=== PATIENT | female | born 1945 | race Caucasian/White ===

== ENCOUNTER 2022-12-10 13:19 | Inpatient (IN) | payer OTHER, MEDICARE ==
[2022-12-10 14:44] VITALS: BMI 18.2
[2022-12-10] MEDS ORDERED: Morphine 2 MG/ML VIAL SLOW IVP PRN (14:51)
[2022-12-10] MEDS ORDERED: Ipratropium/Albuterol 3 ML NEB NEB PRN (14:51)
[2022-12-10] MEDS ORDERED: Ondansetron PF 4 MG/2 ML Vial IVP PRN (14:51)
[2022-12-10] MEDS ORDERED: Cyclobenzaprine 10 MG TAB PO PRN (14:53)
[2022-12-10] MEDS ORDERED: traMADol HCl 50 MG TAB PO PRN (14:53)
[2022-12-10] MEDS: Sodium Chloride 0.9% 1,000 ML IV SCH (16:12)
[2022-12-10] MEDS: Acetaminophen 500 MG TAB PO SCH (18:29)
[2022-12-10] MEDS: traMADol HCl 50 MG TAB PO SCH (18:30)
[2022-12-10] MEDS: Gabapentin 100 MG CAP PO SCH (21:32)
[2022-12-10] MEDS: Calcium Carbonate 500 MG ChewTAB PO SCH (21:32)
[2022-12-10] MEDS: Famotidine/PF 20 mg/2ml Vial SLOW IVP SCH (21:33)
[2022-12-10] MEDS: Senokot S 8.6-50 MG TAB PO SCH (21:34)
[2022-12-11] MEDS: Sodium Chloride 0.9% 1,000 ML IV SCH ×2 (00:32→08:28)
[2022-12-11] MEDS: traMADol HCl 50 MG TAB PO SCH ×4 (00:33→17:43)
[2022-12-11] MEDS: Acetaminophen 500 MG TAB PO SCH ×4 (00:34→17:45)
[2022-12-11] MEDS ORDERED: Clindamycin/D5W 900 MG in Premix Bag 1 BAG IVPB SCH ×2 (06:00→14:00)
[2022-12-11 07:08] LABS: #Eosinphils 0.1 thou/uL (0.0-0.7); #Monocytes 0.5 thou/uL (0.11-0.59); #Neutrophils 6.3 thou/uL (1.40-6.50); %Basophils 0.4 % (0.0-1.0); %Eosinophils 0.8 % (0.0-10.0); %Lymphocytes 16.7 % (21.0-51.0); %Monocytes 5.9 % (0.0-10.0); %Neutrophils 75.8 % (42.0-75.0); Hematocrit 34.1 % (36.0-47.0); Hemoglobin 10.9 g/dL (12.0-16.0); Mean Corpuscular Hemoglobin 30.5 pg (27.0-31.0); Mean Corpuscular Volume 95.5 fl (78.0-98.0); Mean Platelet Volume 11.7 fL (7.4-10.4); Platelet Count 134 10x3/uL (130-400); RBC Distribution Width 13.6 % (11.5-14.5); Red Blood Cell (RBC) Count 3.57 mill/uL (4.20-5.40); White Blood Cell (WBC) Count 8.3 10x3/uL (4.8-10.8)
[2022-12-11 07:22] LABS: INR-International Normal Ratio 1.1; PTT 31.6 sec (22.9-36.1); Prothrombin Time 14.9 sec (12.0-14.7)
[2022-12-11 07:32] LABS: Anion Gap 10 mmol/L (10-20); BUN (Urea Nitrogen) 11 mg/dL (9.8-20.1); Calc. Creatinine Clearance 61 mL/min (70-130); Calcium 8.1 mg/dL (7.8-10.44); Carbon Dioxide 23 mmol/L (23-31); Chloride 103 mmol/L (98-107); Estimated GFR 91; Glucose 88 mg/dL (83-110); Potassium 3.5 mmol/L (3.5-5.1); Sodium 132 mmol/L (136-145)
[2022-12-11] MEDS: Calcium Carbonate 500 MG ChewTAB PO SCH ×2 (08:28→20:52)
[2022-12-11] MEDS: Famotidine/PF 20 mg/2ml Vial SLOW IVP SCH ×2 (08:29→20:53)
[2022-12-11] MEDS: Senokot S 8.6-50 MG TAB PO SCH ×2 (08:29→20:51)
[2022-12-11] MEDS: Gabapentin 100 MG CAP PO SCH ×2 (08:29→20:51)
[2022-12-11] MEDS: Polyethylene Glycol 3350 17 GM Packet PO SCH (08:29)
[2022-12-11] MEDS ORDERED: fentaNYL PF 100 MCG/2 ML SYRINGE ONE ×2 (11:16→12:55)
[2022-12-11] MEDS ORDERED: Clindamycin/D5W 900 mg/50 ml Premix Bag ONE (11:25)
[2022-12-11] MEDS ORDERED: Lidocaine 1% PF 5 ML VIAL ONE (11:47)
[2022-12-11] MEDS ORDERED: Ondansetron PF 4 MG/2 ML Vial ONE (11:47)
[2022-12-11] MEDS ORDERED: Dexamethasone 20 MG/5 ML VIAL ONE (11:47)
[2022-12-11] MEDS ORDERED: ePHEDrine Sulfate 50 MG/10 ML VIAL ONE (11:47)
[2022-12-11] MEDS ORDERED: PROPOFOL 200 MG/20 ML VIAL ONE (11:47)
[2022-12-11] MEDS ORDERED: fentaNYL 50 mcg/mL 1 mL Vial ONE (13:48)
[2022-12-11] MEDS: Clindamycin/D5W 300 MG in Premix Bag 1 BAG IVPB SCH (20:51)
[2022-12-11] MEDS: Clindamycin/D5W 600 MG in Premix Bag 1 BAG IVPB SCH (22:04)
[2022-12-12] MEDS: Acetaminophen 500 MG TAB PO SCH ×4 (00:10→18:46)
[2022-12-12] MEDS: traMADol HCl 50 MG TAB PO SCH ×4 (00:10→18:45)
[2022-12-12] MEDS: Clindamycin/D5W 600 MG in Premix Bag 1 BAG IVPB SCH (04:31)
[2022-12-12] MEDS: Clindamycin/D5W 300 MG in Premix Bag 1 BAG IVPB SCH (04:31)
[2022-12-12] MEDS: Gabapentin 100 MG CAP PO SCH ×2 (09:59→20:50)
[2022-12-12] MEDS: Senokot S 8.6-50 MG TAB PO SCH ×2 (09:59→21:58)
[2022-12-12] MEDS: Famotidine/PF 20 mg/2ml Vial SLOW IVP SCH ×2 (10:00→20:53)
[2022-12-12] MEDS: Calcium Carbonate 500 MG ChewTAB PO SCH ×3 (10:02→20:53)
[2022-12-12] MEDS: Polyethylene Glycol 3350 17 GM Packet PO SCH (10:03)
[2022-12-12 11:53] LABS: #Monocytes 0.8 thou/uL (0.11-0.59); #Neutrophils 8.6 thou/uL (1.40-6.50); %Basophils 0.1 % (0.0-1.0); %Eosinophils 0.1 % (0.0-10.0); %Lymphocytes 8.5 % (21.0-51.0); %Monocytes 7.5 % (0.0-10.0); %Neutrophils 83.3 % (42.0-75.0); Hemoglobin 11.2 g/dL (12.0-16.0); Mean Corpuscular Hemoglobin 30.7 pg (27.0-31.0); Mean Corpuscular Volume 95.9 fl (78.0-98.0); Platelet Count 126 10x3/uL (130-400); RBC Distribution Width 13.6 % (11.5-14.5); Red Blood Cell (RBC) Count 3.65 mill/uL (4.20-5.40); White Blood Cell (WBC) Count 10.3 10x3/uL (4.8-10.8)
[2022-12-12 12:17] LABS: Anion Gap 12 mmol/L (10-20); BUN (Urea Nitrogen) 9 mg/dL (9.8-20.1); Calc. Creatinine Clearance 57 mL/min (70-130); Calcium 8.6 mg/dL (7.8-10.44); Carbon Dioxide 24 mmol/L (23-31); Chloride 101 mmol/L (98-107); Estimated GFR 87; Glucose 92 mg/dL (83-110); Potassium 3.3 mmol/L (3.5-5.1); Sodium 134 mmol/L (136-145)
[2022-12-12] MEDS ORDERED: Potassium Chloride 20 MEQ TAB PO SCH (13:15)
[2022-12-12] MEDS: Aspirin 81 mg Enteric Coated Tablet PO SCH (20:50)
[2022-12-13] MEDS: traMADol HCl 50 MG TAB PO SCH ×3 (00:18→11:43)
[2022-12-13] MEDS: Acetaminophen 500 MG TAB PO SCH ×3 (00:18→11:41)
[2022-12-13 06:21] LABS: #Eosinphils 0.1 thou/uL (0.0-0.7); #Monocytes 0.9 thou/uL (0.11-0.59); #Neutrophils 4.9 thou/uL (1.40-6.50); %Basophils 0.4 % (0.0-1.0); %Lymphocytes 23.1 % (21.0-51.0); %Monocytes 11.6 % (0.0-10.0); %Neutrophils 63.5 % (42.0-75.0); Hematocrit 33.2 % (36.0-47.0); Hemoglobin 10.6 g/dL (12.0-16.0); Mean Corpuscular HGB CONC 31.9 g/dL (32.0-36.0); Mean Corpuscular Hemoglobin 30.3 pg (27.0-31.0); Mean Corpuscular Volume 94.9 fl (78.0-98.0); Mean Platelet Volume 11.9 fL (7.4-10.4); Platelet Count 124 10x3/uL (130-400); White Blood Cell (WBC) Count 7.7 10x3/uL (4.8-10.8)
[2022-12-13 06:46] LABS: Anion Gap 11 mmol/L (10-20); BUN (Urea Nitrogen) 9 mg/dL (9.8-20.1); Calc. Creatinine Clearance 60 mL/min (70-130); Calcium 8.5 mg/dL (7.8-10.44); Carbon Dioxide 24 mmol/L (23-31); Chloride 106 mmol/L (98-107); Estimated GFR 90; Glucose 81 mg/dL (83-110); Potassium 3.9 mmol/L (3.5-5.1); Sodium 137 mmol/L (136-145)
[2022-12-13 08:05] VITALS: BP 154/79
[2022-12-13] MEDS ORDERED: Nitroglycerin 0.4 MG TAB (25 Tab Bottle) ONE (08:21)
[2022-12-13] MEDS: Polyethylene Glycol 3350 17 GM Packet PO SCH (09:40)
[2022-12-13] MEDS: Senokot S 8.6-50 MG TAB PO SCH (09:41)
[2022-12-13] MEDS: Gabapentin 100 MG CAP PO SCH (09:42)
[2022-12-13] MEDS: Famotidine/PF 20 mg/2ml Vial SLOW IVP SCH (09:42)
[2022-12-13] MEDS: Aspirin 81 mg Enteric Coated Tablet PO SCH (09:42)
[2022-12-13] MEDS: Calcium Carbonate 500 MG ChewTAB PO SCH (09:42)
[2022-12-13 12:35] VITALS: TEMP 98
== END 2022-12-13 13:16 | DRG 482 ==
LOC: SJJU 13:56
PROVIDERS: ADMIT Specialist; ATTEND Specialist
PROC: 0QS604Z Reposition Right Upper Femur with Internal Fixation Device, Open Approach (ICD-10-PCS; principal; 2022-12-11)
DX: S72.001A Fracture of unspecified part of neck of right femur, initial encounter for closed fracture (principal); K21.9 Gastro-esophageal reflux disease without esophagitis; E78.5 Hyperlipidemia, unspecified; W19.XXXA Unspecified fall, initial encounter; I10 Essential (primary) hypertension; Z85.3 Personal history of malignant neoplasm of breast; Z90.49 Acquired absence of other specified parts of digestive tract; Z98.890 Other specified postprocedural states; Z88.1 Allergy status to other antibiotic agents; Z88.5 Allergy status to narcotic agent; Z88.8 Allergy status to other drugs, medicaments and biological substances; Y92.89 Other specified places as the place of occurrence of the external cause
CPT/HCPCS: 36415; 80048; 85025; 85610; 85730; 93005; 93010; C1713; J1100; J2405; J2704; J3010; J3490; J7050; S0028